=== PATIENT | female | born 1975 | race Caucasian/White ===

== ENCOUNTER 2024-04-10 21:13 | Emergency (ER) | payer BC, SELFPAY ==
[2024-04-10] MEDS ORDERED: Ketorolac Tromethamine 30 MG (1 mL) VIAL ONE (22:18)
[2024-04-10 22:47] LABS: Hematocrit 34.7 % (34.9-44.5); Hemoglobin 12.4 g/dL (12.0-15.5); Mean Corpuscular HGB CONC 35.7 g/dL (32.0-36.0); Mean Corpuscular Volume 86.8 fL (81.6-98.3); Mean Platelet Volume 11.5 fL (7.4-10.4); Platelet Count 399 10x3/uL (150-450); RBC Distribution Width 13.8 % (11.5-14.5); White Blood Cell (WBC) Count 9.3 10x3/uL (3.5-10.5)
[2024-04-10 22:51] LABS: BHCG - Serum Negative (NEGATIVE); Pregs Control Background? CLEAR/WHITE (CLR/WHITE); Pregs Control Bar Appear? YES (CONTROL BAR)
[2024-04-10 23:00] LABS: ALT (SGPT) 24 U/L (8-55); AST (SGOT) 19 U/L (5-34); Albumin 3.6 g/dL (3.5-5.0); Alkaline Phosphatase 98 U/L (40-110); Anion Gap 16 mmol/L (10-20); BUN (Urea Nitrogen) 5 mg/dL (7.0-18.7); Bilirubin, Total 0.4 mg/dL (0.2-1.2); Calc. Creatinine Clearance 0 mL/min (70-130); Calcium 9.5 mg/dL (7.8-10.44); Carbon Dioxide 21 mmol/L (22-29); Chloride 96 mmol/L (98-107); Estimated GFR 90; Globulin 3.8 g/dL (2.4-3.5); Lipase 7 U/L (8-78); Magnesium 1.8 mg/dL (1.6-2.6); Potassium 3.8 mmol/L (3.5-5.1); Protein, Total 7.4 g/dL (6.0-8.3); Sodium 129 mmol/L (136-145)
[2024-04-10 23:03] LABS: MDiff Complete? YES
[2024-04-10 23:06] LABS: Troponin I Less than 0.010 ng/mL (< 0.028)
[2024-04-10 23:10] LABS: Glucose 563 mg/dL (70-105)
[2024-04-10 23:27] LABS: Lymphocytes 49 % (21-51); Monocytes 5 % (0-10); Neutrophil 40 % (42-75); Reactive Lymphocytes 3 % (0-10)
[2024-04-10 23:30] LABS: Large Platelets SLIGHT (None Seen); Target Cells SLIGHT = 2-5 cells (100X) (0-1/hpf)
[2024-04-10 23:31] LABS: Platelet Adequacy Comment Appears Adequate
[2024-04-10] MEDS ORDERED: Insulin Regular, Human 100 UNIT/ML 10 ML VIAL ONE ×2 (23:55→23:56)
[2024-04-11] MEDS ORDERED: Potassium Chloride 20 MEQ TAB ONE (01:27)
== END 2024-04-11 01:40 | disposition home or self-care (01) ==
LOC: CSHERS 21:13
DX: E11.65 Type 2 diabetes mellitus with hyperglycemia (principal); I10 Essential (primary) hypertension; Z79.899 Other long term (current) drug therapy
CPT/HCPCS: 36416; 71045; 80053; 82010; 83690; 83735; 83880; 83930; 84443; 84484; 84703; 85025; 96361; 96374; 96375; J1815; J1885